=== PATIENT | male | born 1990 | race American Indian/Alaskan Native ===

== ENCOUNTER 2017-05-12 21:27 | Emergency (ER) | payer MEDICAID, OTHER ==
[2017-05-12 21:43] VITALS: BP 147/96; PULSE 73; RESP 16; TEMP 99; O2SAT 99
--- NOTE | 2017-05-12 21:48 | C.PDOC ---
History Of Present Illness 27 year old male who presents to the ER with a complaint of left leg pain after car doretha fell on his leg at approximately 20:00. Patient states he was changing a car tire. Denies weakness or numbness and is able to bear weight. Time Seen by Provider: 05/12/17 21:45 Chief Complaint (Nursing): Lower Extremity Problem/Injury History Per: Patient History/Exam Limitations: no limitations Onset/Duration Of Symptoms: Hrs Current Symptoms Are (Timing): Still Present Recent travel outside of the [place]: No - Ankle/Foot Description Of Injury: Struck With Object (Car), Laceration Past Medical History Reviewed: Historical Data, Nursing Documentation, Vital Signs Vital Signs: Last Vital Signs Temp 99 F 05/12/17 21:40 Pulse 73 05/12/17 21:40 Resp 16 05/12/17 21:40 BP 147/96 H 05/12/17 21:40 Pulse Ox 99 05/12/17 22:23 - Medical History PMH: HTN - [facility] Procedures ATLAS-AXIS FUSION (09/04/14) BONE MARROW OPS NEC (09/04/14) FUSION/REFUS OF 2-3 VERTEBRAE (09/04/14) INSERTION OF INTERBODY SPINAL FUSION DEVICE (09/04/14) INTRA-OPERATIVE NEUROPHYSIOLOGIC MONITORING (09/04/14) OTHER THERAPEUTIC APHERESIS (09/04/14) Family History: States: Unknown Family Hx - Social History Hx Tobacco Use: Yes Hx Alcohol Use: Yes Hx Substance Use: No - Immunization History Hx Tetanus Toxoid Vaccination: Yes Hx Influenza Vaccination: Yes Hx Pneumococcal Vaccination: Yes Review Of Systems Musculoskeletal: Positive for: Leg Pain Neurological: Negative for: Weakness, Numbness Physical Exam - Physical Exam Appears: Non-toxic Skin: Warm, Dry, Other (2cm linear clean laceration to distal lateral tibia) Head: Atraumatic, Normacephalic Eye(s): bilateral: Normal Inspection Neck: Normal ROM Chest: Symmetrical Extremity: Tenderness (Mild tenderness to distal left latearl distal tibial area with laceration ), No Deformity Pulses: Left Dorsalis Pedis: Normal, Right Dorsalis Pedis: Normal Neurological/Psych: Oriented x3, Normal Speech, Other (No focal deficits) ED Course And Treatment O2 Sat by Pulse Oximetry: 99 (Room air) Pulse Ox Interpretation: Normal Laceration - Laceration Repair left leg Wound Length (In cm): 2 Description Of Wound: Linear, Clean Wound Cleansed With: Sterile Saline Anesthesia: Lidocaine 1% Wound Examination: Irrigated With Saline, No FB With Wound Exploration Wound Closure: Suture Suture Technique And Material Used: Interrupted (3), Nylon (4-0) Wound Complexity: Simple Medical Decision Making Medical Decision Making: Impression: 27 year old male with left leg injury Plan: * Suture * Bacitracin * Motrin * Left tibia/fibula x-ray XRay reviewed by me showing no acute fracture Laceration repair by PA. Patient tolerated well Bacitracin and dressing applied. instruct on suture removal in 8-10 days Disposition Counseled Patient/Family Regarding: Diagnosis, Need For Followup, Rx Given - Disposition Disposition: HOME/ ROUTINE Disposition Time: 22:20 Condition: STABLE Additional Instructions: Keep area clean and dry. May wash gently with soap and water, do not use alcohol or iodine solution. Change dressing 1-2 times daily. Return to ER if fever occurs, redness or swelling around wound, pus in the wound. Please follow up with your primary doctor, clinic, or urgent care for suture removal in 8-10 days Instructions: Care For Your Stitches (ED), Contusion in Adults (ED) - POA Present On Arrival: None - Clinical Impression Clinical Impression: Contusion of leg, Leg laceration - PA / PHARMACY GRADUATE INTERN / Resident Statement MD/DO has reviewed & agrees with the documentation as recorded. - Scribe Statement The provider has reviewed the documentation as recorded by the Scribe Ky Gaona All medical record entries made by the Scribe were at my direction and personally dictated by me. I have reviewed the chart and agree that the record accurately reflects my personal performance of the history, physical exam, medical decision making, and the department course for this patient. I have also personally directed, reviewed, and agree with the discharge instructions and disposition.
[2017-05-12] MEDS ORDERED: Bacitracin 500 Units/gm Oint Foilpak UD TOP ONE (21:51)
[2017-05-12] MEDS ORDERED: Lidocaine 1% Inj (20ml) INFIL STA (21:51)
[2017-05-12] MEDS ORDERED: Bacitracin 500 Units/gm Oint Foilpak UD ONE (21:57)
[2017-05-12] MEDS ORDERED: Lidocaine Hydrochloride 5 ML INJ ONE (21:57)
--- NOTE | 2017-05-13 07:50 | RAD ---
Left tibia and fibula three views History: Pain. Status post injury. Comparison: None available. Findings: No evidence of acute displaced fracture or dislocation. Impression: Negative acute. If pain persists, consider MRI.
== END 2017-05-12 22:25 | disposition home or self-care (01) ==
LOC: C.ER 21:27
DX: S81.812A Laceration without foreign body, left lower leg, initial encounter (principal); W22.8XXA Striking against or struck by other objects, initial encounter; Y93.89 Activity, other specified